=== PATIENT | female | born 1955 | race Hispanic/Latino ===

== ENCOUNTER 2020-03-16 09:14 | Observation (INO) | payer OTHER ==
[~2020-03-16] VITALS: Ht 162.6 cm; Wt 116.3 kg
--- NOTE | 2020-03-16 09:31 | NUR ---
Left arm BP 218/96 Right arm 167/96 Left arm BP 200/91 Right arm 186/103
[2020-03-16] MEDS ORDERED: HYDRALAZINE HCL 20 MG/ML VIAL IV STA (09:41)
[2020-03-16 09:44] LABS: BASOPHILS % 0.6 % (0.0-1.0); EOSINOPHILS % 0.8 % (0.0-6.0); HEMATOCRIT 44.1 % (34.2-44.1); HEMOGLOBIN 13.6 g/dL (12.0-16.0); LYMPHOCYTES # (AUTO) 1.9 (1.0-3.2); LYMPHOCYTES % 35.3 % (18.0-39.1); MEAN CORPUSCULAR HEMOGLOBIN 26.4 pg (28-32); MEAN CORPUSCULAR HGB CONC 30.8 g/dL (31-35); MEAN CORPUSCULAR VOLUME 85.6 fL (81-99); MONOCYTES # (AUTO) 0.4 (0.2-0.8); MONOCYTES % 6.6 % (4.4-11.3); NEUTROPHILS % 56.3 % (38.7-80.0); PLATELET COUNT 241 x10e3/uL (140-360); RED BLOOD COUNT 5.15 x10e6/uL (3.6-5.1); RED CELL DISTRIBUTION WIDTH 14.6 % (11.7-14.4)
[2020-03-16 09:59] LABS: INR 0.89; PROTHROMBIN TIME 12.5 seconds (11.9-14.5)
[2020-03-16 10:00] LABS: PARTIAL THROMBOPLASTIN TIME 28.5 seconds (23.8-35.5)
[2020-03-16 10:08] LABS: ALANINE AMINOTRANSFERASE 14 IU/L (0-55); ALBUMIN 4.2 g/dL (3.5-5.0); ALBUMIN/GLOBULIN RATIO 1.2 (0.8-2.0); ALKALINE PHOSPHATASE 67 IU/L (40-150); BLOOD UREA NITROGEN 9 mg/dL (7-26); BUN/CREATININE RATIO 13 (6-25); CALCIUM 9.5 mg/dL (8.4-10.2); CARBON DIOXIDE 30 mmol/L (22-29); CHLORIDE 102 mmol/L (98-107); CREATINE KINASE 45 IU/L (29-168); EST GLOMERULAR FILTRATION RATE > 60 ML/MIN (60-); GLUCOSE 111 mg/dL (74-118); MAGNESIUM 2.2 MG/DL (1.3-2.1); SODIUM 140 mmol/L (136-145)
[2020-03-16 10:13] LABS: AMYLASE 45 U/L (25-125); LIPASE 25 U/L (8-78)
--- NOTE | 2020-03-16 10:15 | Emergency Department Note ---
History of Present Illnes History of Present Illness Chief Complaint: General Medicine Complaints History of Present Illness This is a 64 year old female Patient in from home with complaints of shortness of breath, epigastric pain, chest pressure, and numbness in her left arm as well as bilateral lower extremities. Patient reports that her blood pressure was high at home today as well as she has been experiencing some vision trouble which she says happens when her blood pressure goes up. Denies pain at this time. Patient is alert and oriented x4. Denies exposure to covid. Historian: Patient Arrival Mode: Car Biztalk Software Developer Required: No Onset (how long ago): hour(s) Location: ABOVE Quality: PAIN Radiation: Reports other (EPIGASTRIC TO CHEST) Severity: moderate Onset quality: sudden Timing of current episode: constant Progression: unchanged Chronicity: new Context: Denies recent illness Relieving factors: none Exacerbating factors: none Associated symptoms: Reports chest pain, Reports shortness of breath Treatments prior to arrival: none Past Medical/Family History Physician Review I have reviewed the patient's past medical and family history. Any updates have been documented here. Past Medical History Recent Fever: No Clinical Suspicion of Infectio: No New/Unexplained Change in Ment: No Past Medical History: Hypertension, Diabetes, Hyperlipedemia Other Medical History: Overactive bladder Past Surgical History: Hysterectomy, Social History Smoking Cessation: Never Smoker Counseling Performed: No Alcohol Use: None Any Illegal Drug Use: No TB Exposure/Symptoms: No Physically hurt or threatened: No Family History Family history of heart diseas: No Other Any Pre-Existing Lines (PICC,: No Review of Systems Review of Systems Constitutional: Reports no symptoms EENTM: Reports no symptoms Cardiovascular: Reports as per HPI Respiratory: Reports as per HPI Gastrointestinal: Reports no symptoms Genitourinary: Reports no symptoms Musculoskeletal: Reports no symptoms Integumentary: Reports no symptoms Neurological: Reports as per HPI Psychological: Reports no symptoms Endocrine: Reports no symptoms Hematological/Lymphatic: Reports no symptoms Physical Exam Related Data Allergies: Coded Allergies: No Known Allergies (Unverified , 03/16/20) Triage Vital Signs Vital Signs Date Time Temp Pulse Resp B/P (MAP) Pulse Ox O2 Delivery O2 Flow Rate FiO2 03/16/20 09:20 99.0 66 18 218/96 100 Room Air Vital signs reviewed: Yes Physical Exam CONSTITUTIONAL Constitutional: Present well-developed, Present well-nourished, Present obese HENT HENT: Present normocephalic, Present atraumatic, Present oropharynx clear/moist, Present nose normal HENT L/R: Present left ext ear normal, Present right ext ear normal EYES Eyes: Reports PERRL, Reports conjunctivae normal NECK Neck: Present ROM normal PULMONARY Pulmonary: Present effort normal, Present breath sounds normal CARDIOVASCULAR Cardiovascular: Present regular rhythm, Present heart sounds normal, Present capillary refill normal, Present normal rate GASTROINTESTINAL Abdominal: Present soft, Present bowel sounds normal, Present tender (MILD TTP HEATH WITHOUT R/G, NABS); Absent guarding, Absent mass, Absent rebound GENITOURINARY Genitourinary: Present exam deferred SKIN Skin: Present warm, Present dry MUSCULOSKELETAL Musculoskeletal: Present ROM normal NEUROLOGICAL Neurological: Present alert, Present oriented x 3, Present no gross motor or s ensory deficits PSYCHOLOGICAL Psychological: Present mood/affect normal, Present judgement normal Results Laboratory Result Diagram: 03/16/20 0934 Laboratory Laboratory Tests Test 03/16/20 09:34 White Blood Count 5.33 x10e3/uL (4.8-10.8) Red Blood Count 5.15 x10e6/uL (3.6-5.1) Hemoglobin 13.6 g/dL (12.0-16.0) Hematocrit 44.1 % (34.2-44.1) Mean Corpuscular Volume 85.6 fL (81-99) Mean Corpuscular Hemoglobin 26.4 pg (28-32) Mean Corpuscular Hemoglobin Concent 30.8 g/dL (31-35) Red Cell Distribution Width 14.6 % (11.7-14.4) Platelet Count 241 x10e3/uL (140-360) Neutrophils (%) (Auto) 56.3 % (38.7-80.0) Lymphocytes (%) (Auto) 35.3 % (18.0-39.1) Monocytes (%) (Auto) 6.6 % (4.4-11.3) Eosinophils (%) (Auto) 0.8 % (0.0-6.0) Basophils (%) (Auto) 0.6 % (0.0-1.0) Neutrophils # (Auto) 3.0 (2.1-6.9) Lymphocytes # (Auto) 1.9 (1.0-3.2) Monocytes # (Auto) 0.4 (0.2-0.8) Eosinophils # (Auto) 0.0 (0.0-0.4) Basophils # (Auto) 0.0 (0.0-0.1) Absolute Immature Granulocyte (auto 0.02 x10e3/uL (0-0.1) Prothrombin Time 12.5 seconds (11.9-14.5) Prothromb Time International Ratio 0.89 Activated Partial Thromboplast Time 28.5 seconds (23.8-35.5) Sodium Level 140 mmol/L (136-145) Potassium Level 4.0 mmol/L (3.5-5.1) Chloride Level 102 mmol/L (98-107) Carbon Dioxide Level 30 mmol/L (22-29) Anion Gap 12.0 mmol/L (8-16) Blood Urea Nitrogen 9 mg/dL (7-26) Creatinine 0.70 mg/dL (0.57-1.11) Estimat Glomerular Filtration Rate > 60 ML/MIN (60-) BUN/Creatinine Ratio 13 (6-25) Glucose Level 111 mg/dL (74-118) Calcium Level 9.5 mg/dL (8.4-10.2) Magnesium Level 2.2 MG/DL (1.3-2.1) Total Bilirubin 1.1 mg/dL (0.2-1.2) Aspartate Amino Transf (AST/SGOT) 18 IU/L (5-34) Alanine Aminotransferase (ALT/SGPT) 14 IU/L (0-55) Alkaline Phosphatase 67 IU/L (40-150) Creatine Kinase 45 IU/L (29-168) Creatine Kinase MB 1.10 ng/mL (0-5.0) Troponin I < 0.001 ng/mL (0-0.300) B-Type Natriuretic Peptide 231.6 pg/mL (0-100) Total Protein 7.8 g/dL (6.5-8.1) Albumin 4.2 g/dL (3.5-5.0) Globulin 3.6 g/dL (2.3-3.5) Albumin/Globulin Ratio 1.2 (0.8-2.0) Amylase Level 45 U/L (25-125) Lipase 25 U/L (8-78) Laboratory Tests Test 03/16/20 09:34 White Blood Count 5.33 x10e3/uL (4.8-10.8) Red Blood Count 5.15 x10e6/uL (3.6-5.1) Hemoglobin 13.6 g/dL (12.0-16.0) Hematocrit 44.1 % (34.2-44.1) Mean Corpuscular Volume 85.6 fL (81-99) Mean Corpuscular Hemoglobin 26.4 pg (28-32) Mean Corpuscular Hemoglobin Concent 30.8 g/dL (31-35) Red Cell Distribution Width 14.6 % (11.7-14.4) Platelet Count 241 x10e3/uL (140-360) Neutrophils (%) (Auto) 56.3 % (38.7-80.0) Lymphocytes (%) (Auto) 35.3 % (18.0-39.1) Monocytes (%) (Auto) 6.6 % (4.4-11.3) Eosinophils (%) (Auto) 0.8 % (0.0-6.0) Basophils (%) (Auto) 0.6 % (0.0-1.0) Neutrophils # (Auto) 3.0 (2.1-6.9) Lymphocytes # (Auto) 1.9 (1.0-3.2) Monocytes # (Auto) 0.4 (0.2-0.8) Eosinophils # (Auto) 0.0 (0.0-0.4) Basophils # (Auto) 0.0 (0.0-0.1) Absolute Immature Granulocyte (auto 0.02 x10e3/uL (0-0.1) Lab results reviewed: Yes Imaging Imaging results reviewed: Yes Procedures 12 Lead ECG Interpretation ECG Interpretation : ECG: ECG 1 Biztalk Software Developer: Interpreted by ED physician Date: Mar 16, 2020 Time: 09:26 Rhythm: sinus bradycardia Ectopy: atrial premature contractions Rate: bradycardia BPM: 54 QRS axis: normal ST segments normal: Yes T waves flattening: aVF, V1 Clinical Impression: abnormal ECG Assessment & Plan Medical Decision Making MDM PT C/O HEATH PAIN RAD TO CHEST AND NUMBNESS TO LEFT ARM & BILAT LEGS, BP HIGHER LEFT ARM THAN RIGHT - CBC, CHEM, ECG, CARDIACS, CT CHEST/ABD - R/O STEMI/NSTEMI, Ao ANEURYSM OR DISSECTION, PANCREATITIS. Reassessment Reassessment admit to PCP Dr Cox Assessment & Plan Final Impression: (1) Chest pain Depart Disposition: ADMITTED Last Vital Signs Date Time Temp Pulse Resp B/P (MAP) Pulse Ox O2 Delivery O2 Flow Rate FiO2 03/16/20 09:31 58 19 186/103 98 Room Air 03/16/20 09:20 99.0 Medications in the ED Hydralazine HCl 10 mg NOW STAT IV ; Start 03/16/20 at 09:41; Stop 03/16/20 at 09:47; Status DC KEISHA ALCAZAR MD Mar 16, 2020 10:15
--- NOTE | 2020-03-16 10:21 | Diagnostic Imaging Report ---
X-ray chest frontal view History: Chest pain Comparison: None Findings: Lines and tubes: Not applicable Central airways: Unremarkable Cardiac silhouette: Unremarkable Mediastinal silhouettes: Unremarkable Pleura: No pleural effusion, pneumothorax or thickening Diaphragms: Unremarkable Lungs: No focal lung disease Skeletal structures: Unremarkable Extrathoracic soft tissues: Unremarkable Impression: No acute cardiopulmonary disease Signed by: Lopez Merino MD on 03/16/2020 10:18 AM
[2020-03-16] MEDS ORDERED: SODIUM CHLORIDE 0.9% 100 ML ONE (10:39)
[2020-03-16] MEDS ORDERED: IOPAMIDOL 370 MG/ML 200 ML INFUS..BTL INJ ONE (10:39)
--- NOTE | 2020-03-16 11:34 | Diagnostic Imaging Report ---
CT BRAIN WO HISTORY: Numbness to left arm and bilateral leg COMPARISON: None. TECHNIQUE: Noncontrast axial scans were obtained from skull base to the vertex. Coronal and sagittal reconstructions obtained from the axial data. One or more of the following dose reduction techniques were used: Automated exposure control, adjustment of the mA and/or kV according to patient size, and/or utilization of iterative reconstruction technique. DISCUSSION: Scalp/Skull: Unremarkable. Brain sulci: Mildly prominent. Ventricles: Mild compensatory dilatation. Extra-axial spaces: No masses or fluid collections. Mild carotid siphon calcifications. Parenchyma: No abnormal densities. No mass, hemorrhage, or large vascular territory acute infarct. Dural sinuses: No abnormal densities. Sellar/Suprasellar region: Intact. Skull base: Intact. Incidental findings: Small osteoma in the left ethmoid air cells. Mild mucosal thickening in the right posterior ethmoid air cells. IMPRESSION: 1. No acute intracranial abnormalities. 2. Mild generalized cerebral volume loss. Signed by: Dr. Ernesto Riojas M.D. on 03/16/2020 11:30 AM
--- NOTE | 2020-03-16 12:16 | Diagnostic Imaging Report ---
EXAM: CTA CHEST ABDOMEN AND PELVIS WITH CONTRAST CLINICAL INDICATION: Pain radiating into the chest TECHNIQUE: CTA chest of the chest abdomen and pelvis was performed without and then following the administration of intravenous contrast, as per department CTA protocol. Axial, sagittal, and coronal reconstructions were obtained. Additionally 3-D images were generated from the raw data using a workstation by the technologist. IV CONTRAST:100 cc of Isovue-370 RADIATION DOSE REDUCTION: This exam was performed according to the departmental dose-optimization program which includes automated exposure control, adjustment of the mA and/or kV according to patient size and/or use of iterative reconstruction technique. COMPARISON: None FINDINGS: VASCULAR COMPONENTS: Vascular structures including the entire aorta, the cervicocerebral branches, the celiac superior mesenteric and inferior mesenteric arteries, single bilateral renal arteries, the common external and internal iliac arteries, the femoral arteries to the extent seen are all normal. Specifically, there is no acute aortic pathology identified on the noncontrast or contrast enhanced images. The venous phase was not performed. But grossly there is no significant abnormality of the veins identified either. NON-VASCULAR COMPONENTS: LOWER NECK: No pathologic process in imaged portion of lower neck. PULMONARY PARENCHYMA AND AIRWAYS: No acute pathologic process. There is presence of a 4 mm nodular density in the right upper lobe seen on axial lung window images #14 series #6. MEDIASTINUM AND OSCAR: No pathologic process. HEART AND PERICARDIUM: Heart normal size. No coronary artery calcification. No pericardial fluid or thickening. PLEURAL SPACES: No pleural fluid, pleural thickening or pneumothorax. CHEST WALL AND AXILLA: No pathologic process. MUSCULOSKELETAL: No pathologic process. LIVER: No pathologic process. GALLBLADDER: Unremarkable BILE DUCTS: No pathologic process. PANCREAS: No pathologic process. SPLEEN: No pathologic process. ADRENALS: No pathologic process. KIDNEYS AND URETERS: No pathologic process. URINARY BLADDER: No pathologic process. GASTROINTESTINAL TRACT: No pathologic process. APPENDIX: No inflammatory changes in region of appendix. LYMPH NODES: No lymphadenopathy. PERITONEUM/MESENTERY: No free air, significant free fluid, mass or fluid collection. ADDITIONAL RETROPERITONEAL FINDINGS: None. REPRODUCTIVE ORGANS:Status post hysterectomy.] Ovary not identified. Dense calcific focus in the left ovary. This can the further evaluated on pelvic ultrasound. ABDOMINAL AND PELVIC SHANKS: No pathologic process. MUSCULOSKELETAL: No pathologic process. ADDITIONAL FINDINGS: None. IMPRESSION: Normal CTA of the chest abdomen and pelvis. Standardized Report: [id number]. Signed by: Lopez Merino MD on 03/16/2020 12:13 PM
--- NOTE | 2020-03-16 12:26 | Diagnostic Imaging Report ---
Please see report under CTA of chest abdomen and pelvis under a different accession number, same date. Signed by: Lopez Merino MD on 03/16/2020 12:22 PM
[2020-03-16] MEDS ORDERED: ONDANSETRON HCL INJ 2MG/ML 2ML 2 MG/ML VIAL IV PRN (12:45)
[2020-03-16] MEDS ORDERED: MORPHINE SULFATE 2 MG/ML SYR 1ML IV PRN (12:45)
[2020-03-16] MEDS: FAMOTIDINE 20 MG/2 ML VIAL IV SCH (13:12)
[2020-03-16 14:27] VITALS: BP 157/80
--- NOTE | 2020-03-16 14:27 | NUR ---
Pt received from ER at this time. Pt is aox4 and able to verbalize needs. Pt is mostly Tajik speaking. Denies any pain at this time. Breathes are even and unlabored on room air.
[2020-03-16] MEDS ORDERED: METFORMIN HCL500 MG PO (15:20)
[2020-03-16] MEDS ORDERED: SIMVASTATIN20 MG PO (15:20)
[2020-03-16] MEDS ORDERED: LOSARTAN-HCTZ1 EAC1 PO (15:20)
[2020-03-16] MEDS ORDERED: OXYBUTYNIN CHLOR5 M1 PO (15:20)
[2020-03-16] MEDS ORDERED: ATENOLOL50 MG PO (15:20)
[2020-03-16] MEDS ORDERED: DEXTROSE 50% SYRINGE 50 ML IV PRN (16:30)
[2020-03-16] MEDS: INSULIN REGULAR, HUMAN 100 UNIT/1 ML 3ML VIAL SQ SCH ×2 (16:30→20:41)
[2020-03-16 19:09] LABS: CREATINE KINASE 36 IU/L (29-168)
[2020-03-16 20:00] VITALS: BP 172/63
[2020-03-16] MEDS ORDERED: SIMVASTATIN 20 MG TAB PO SCH (21:00)
[2020-03-17] VITALS: BP 159/67
--- NOTE | 2020-03-17 | Consultation ---
DATE OF CONSULTATION: 03/16/2020 Cardiology Consultation Note REASON FOR CONSULTATION: Hypertensive emergency, chest pain and shortness of breath. HISTORY OF PRESENT ILLNESS: The patient is a 64-year-old woman with history of hypertension, diabetes mellitus and hyperlipidemia, who comes to the emergency room because of elevated blood pressure at home and symptoms of chest pressure, shortness of breath, left arm numbness, and paresthesia in both feet. The patient states that her usual blood pressure at home is systolic BP of 140 to 150 mmHg with diastolic 80 or less. The patient checked her blood pressure on the day of admission and it was 179/80s mmHg. She had also been experiencing shortness of breath, chest pressure, numbness of her left arm and paresthesia in both feet for the previous 3 days. The patient's symptoms have resolved. She states she has a great deal of stress at home due to three grandchildren ages 13-, 10- and 1-year-old, respectively. The grandchildren are now schooling from home and the 10-year-old child (boy) is hyperactive. The patient has no history of coronary artery disease, RI, heart failure, palpitations, syncope; she gives history of shortness of breath in the past, treated as an outpatient. MEDICAL HISTORY: 1. Hypertension. 2. Diabetes type 2, requiring insulin. 3. Hyperlipidemia. HOME MEDICATIONS: 1. Atenolol, 50 mg tablet, 100 mg p.o. daily. 2. Losartan-hydrochlorothiazide 100/25 mg tablet one a day. 3. Metformin 500 mg tablet one two times a day. 4. Simvastatin 20 mg tablet at night. 5. Insulin SOCIAL HISTORY: Denies tobacco, alcohol or other drug use. is a smoker and used to smoke in the house. REVIEW OF SYSTEMS: As noted above, otherwise 12-organ review of system negative. PHYSICAL EXAMINATION: VITAL SIGNS: The patient's blood pressure was 145/65 with a heart rate of 58, pulse oximetry 100% room air, afebrile. HEAD AND NECK: Normocephalic, atraumatic. Anicteric conjunctiva. No elevation of jugular venous pressure. Trachea midline. LUNGS: Clear to auscultation. CARDIAC: Normal S1 and S2. Positive S4. No S3. No murmurs. ABDOMEN: Soft, nontender and not distended. EXTREMITIES: No leg edema, clubbing, or cyanosis. NEUROLOGIC: The patient was alert and oriented x3, no focal findings. LABORATORY DATA: Showed a white blood cell count of 5.3, hemoglobin is 13.6, hematocrit is 44.1, platelet count is 241,000. Her basic metabolic profile showed sodium 140, potassium 4.0, chloride 102, carbon dioxide 30, BUN 9, creatinine 0.7, glucose 111. Her magnesium was 2.2. Her liver tests were within reference range. Troponin I levels not elevated. Her BNP was mildly elevated at 232. Her electrocardiogram showed normal sinus rhythm and no significant ST abnormalities. Telemetry: sinus bradycardia, no arrhythmias. Chest x-ray: no acute cardiopulmonary disease. CTA of chest, abdomen and pelvis: no abnormalities. CT of the brain without contrast: no acute intracranial abnormalities, mild generalized cerebral volume loss. ASSESSMENT AND PLAN: 1. Hypertensive emergency: Blood pressures recorded in the ER: Left and right arm blood pressures: 218/96 and 167/96 mmHg, respectively; Repeated blood pressures in the ER: left and right arm: 200/91 and 186/103 mmHg, respectively. Her subsequent systolic blood pressures have fluctuated between 145 and 161 mmHg, diastolic blood pressure< 80 mmHg. CTA chest, abdomen, pelvis as above. She is now asymptomatic. Echocardiogram has been ordered. Resume home blood pressure medications, monitor closely, adjust as needed. 2. No evidence of acute coronary syndrome. 3. Hyperlipidemia, continue statin. Thank you for this consultation. MD LEAH Jones/GEMMA /[id number] MTDBryan
[2020-03-17] MEDS: FAMOTIDINE 20 MG/2 ML VIAL IV SCH ×2 (00:45→13:28)
[2020-03-17 01:20] LABS: CREATINE KINASE 35 IU/L (29-168)
[2020-03-17 04:00] VITALS: BP 126/66
[2020-03-17 04:33] VITALS: BP 159/67
[2020-03-17 06:02] LABS: BASOPHILS % 0.5 % (0.0-1.0); EOSINOPHILS # (AUTO) 0.1 (0.0-0.4); EOSINOPHILS % 1.5 % (0.0-6.0); HEMATOCRIT 42.1 % (34.2-44.1); HEMOGLOBIN 12.8 g/dL (12.0-16.0); LYMPHOCYTES # (AUTO) 1.9 (1.0-3.2); LYMPHOCYTES % 33.9 % (18.0-39.1); MEAN CORPUSCULAR HEMOGLOBIN 26.7 pg (28-32); MEAN CORPUSCULAR HGB CONC 30.4 g/dL (31-35); MEAN CORPUSCULAR VOLUME 87.9 fL (81-99); MONOCYTES # (AUTO) 0.5 (0.2-0.8); MONOCYTES % 8.9 % (4.4-11.3); PLATELET COUNT 228 x10e3/uL (140-360); RED BLOOD COUNT 4.79 x10e6/uL (3.6-5.1); RED CELL DISTRIBUTION WIDTH 14.6 % (11.7-14.4)
[2020-03-17 06:19] LABS: ALANINE AMINOTRANSFERASE 12 IU/L (0-55); ALBUMIN 3.6 g/dL (3.5-5.0); ALBUMIN/GLOBULIN RATIO 1.1 (0.8-2.0); ALKALINE PHOSPHATASE 59 IU/L (40-150); ANION GAP 13.6 mmol/L (8-16); BLOOD UREA NITROGEN 9 mg/dL (7-26); BUN/CREATININE RATIO 12 (6-25); CALCIUM 9.3 mg/dL (8.4-10.2); CARBON DIOXIDE 32 mmol/L (22-29); CHLORIDE 101 mmol/L (98-107); CHOL/HDL RATIO 3.8 (3.0-3.6); CHOLESTEROL 138 MD/DL (0-199); CREATININE, SERUM 0.76 mg/dL (0.57-1.11); EST GLOMERULAR FILTRATION RATE > 60 ML/MIN (60-); GLUCOSE 120 mg/dL (74-118); HDL CHOLESTEROL 36 MG/DL (40-60); LDL CHOLESTEROL 63 MG/DL (60-130); POTASSIUM 4.6 mmol/L (3.5-5.1); SODIUM 142 mmol/L (136-145); TRIGLYCERIDES 196 MG/DL (0-149)
[2020-03-17 06:40] LABS: CREATINE KINASE MB 0.9 ng/mL (0-5.0)
[2020-03-17 07:47] VITALS: BP 131/61
[2020-03-17] MEDS: INSULIN REGULAR, HUMAN 100 UNIT/1 ML 3ML VIAL SQ SCH ×2 (08:00→11:30)
[2020-03-17 08:12] VITALS: BP 131/61
[2020-03-17] MEDS ORDERED: ASPIRIN 81 MG ENTERIC COATED PO SCH (09:00)
[2020-03-17] MEDS ORDERED: OXYBUTYNIN CHLORIDE XL 5 MG TAB PO SCH (09:00)
[2020-03-17] MEDS ORDERED: ATENOLOL 50 MG TAB PO SCH (09:00)
[2020-03-17] MEDS ORDERED: HYDROCHLOROTHIAZIDE 25 MG TAB PO SCH (09:00)
[2020-03-17] MEDS ORDERED: LOSARTAN POTASSIUM 100 MG TAB PO SCH (09:00)
[2020-03-17] MEDS ORDERED: NON-FORMULARY MEDICATION (Losartan/Hydrochlorothiazide (Losartan-Hctz 100-25 Mg Tab) 1 TAB PO SCH (09:00)
[2020-03-17] MEDS ORDERED: ACETAMINOPHEN 325 MG TAB ONE (09:04)
[2020-03-17] MEDS ORDERED: ACETAMINOPHEN 325 MG TAB PO ONE (09:30)
--- OUTSIDE RECORDS SUMMARY | 2020-03-17 10:04 | XMS REPORT | Continuity of Care Document ---
Author Author [facility] t Organization [facility] Address [address] [place] [address] Dr. Aguilar [address] [place] [id number] Phone Unavailable Care Team Providers Care Inspector Insulation Name Role Phone Valerio ALCAZAR Attphys Unavailable Problems This patient has no known problems. Allergies, Adverse Reactions, Alerts This patient has no known allergies or adverse reactions. Medications This patient has no known medications. Procedures This patient has no known procedures. Results Test Description Test Time Test Comments Results Result Comments Source CTA CHEST 2020-03-16 12:22:00 [facility] : 1955 Sex: F [facility] [address] [address] Patient Name: GENARO LEOS MR #: [id number] : 1955 Age/Sex: 64/F Req #: [id number] [facility] Physician: Ordered by: KEISHA ALCAZAR MD Report #: [id number] Location: ER Room/Bed: Procedure: [id number] CT/CTA CHEST Exam Date: 03/16/20 Exam Time: 1102 REPORT STATUS: Signed Please see report under CTA of chest abdomen and pelvis under a different accession number, same date. Signed by: Rafael Cuellar MD on 03/16/2020 12:22 PM Dictated By: RAFAEL CUELLAR MD 21 Transcribed By: PRITESH on 03/16/201221 COPY TO: KEISHA ALCAZAR MD CTA ABD/PELVIS 2020-03-16 11:54:00 [facility] : 1955 Sex: F [address] [address] Patient Name: GENARO LEOS MR #: [id number] : 1955 Age/Sex: 64/F Req #: [id number] [facility] Physician: Ordered by: KEISHA ALCAZAR MD Report #: [id number] Location: Room/Bed: Procedure: [id number] CT/CTA ABD/PELVIS Exam Date: 03/16/20 Exam Time: 1102 REPORT STATUS: Signed EXAM: CTA CHEST ABDOMEN AND PELVIS WITH CONTRAST CLINICAL INDICATION: Pain radiating into the chest TECHNIQUE: CTA chest of the chest abdomen and pelvis was performed without and then following the administration of intravenous contrast, as per department CTA protocol. Axial, sagittal, and coronal reconstructions were obtained. Additionally 3-D images were generated from the raw data using a workstation by the technologist. IV CONTRAST:100 cc of Isovue-370 RADIATION DOSE REDUCTION: This exam was performed according to the departmental dose- optimization program which includes automated exposure control, adjustment of the mA and/or kV according to patient size and/or use of iterative reconstruction technique. COMPARISON: None FINDINGS: VASCULAR COMPONENTS: Vascular structures including the entire aorta, the cervicocerebral branches, the celiac superior mesenteric and inferior mesenteric arteries, single bilateral renal arteries, the common external and internal iliac arteries, the femoral arteries to the extent seen are all normal. Specifically, there is no acute aortic pathology identified on the noncontrast or contrast enhanced images. The venous phase was not performed. But grossly there is no significant abnormality of the veins identified either. NON-VASCULAR COMPONENTS: LOWER NECK: No pathologic process in imaged portion of lower neck. PULMONARY PARENCHYMA AND AIRWAYS: No acute pathologic process. There is presence of a 4 mm nodular density in the right upper lobe seen on axial lung window images #14 series #6. MEDIASTINUM AND OSCAR: No pathologic process. HEART AND PERICARDIUM: Heart normal size. No coronary artery calcification. No pericardial fluid or thickening. PLEURAL SPACES: No pleural fluid, pleural thickening or pneumothorax. CHEST WALL AND AXILLA: No pathologic process. MUSCULOSKELETAL: No pathologic process. LIVER: No pathologic process. GALLBLADDER: Unremarkable BILE DUCTS: No pathologic process. PANCREAS: No pathologic process. SPLEEN: No pathologic process. ADRENALS: No pathologic process. KIDNEYS AND URETERS: No pathologic process. URINARY BLADDER: No pathologic process. GASTROINTESTINAL TRACT: No pathologic process. APPENDIX: No inflammatory changes in region of appendix. LYMPH NODES: No lymphadenopathy. PERITONEUM/MESENTERY: No free air, significant free fluid, mass or fluid collection. ADDITIONAL RETROPERITONEAL FINDINGS: None. REPRODUCTIVE ORGANS:Status post hysterectomy.] Ovary not identified. Dense calcific focus in the left ovary. This can the further evaluated on pelvic ultrasound. ABDOMINAL AND PELVIC SHANKS: No pathologic process. MUSCULOSKELETAL: No pathologic process. ADDITIONAL FINDINGS: None. IMPRESSION: Normal CTA of the chest abdomen and pelvis. Standardized Report: [id number]. Signed by: Rafael Cuellar MD on 03/16/2020 12:13 PM Dictated By: RAFAEL CUELLAR MD 12 Transcribed By: PRITESH on 03/16/201212 COPY TO: KEISHA ALCAZAR MD CT BRAIN WO 2020-03-16 11:27:00 [facility] : 1955 Sex: F [address] [place] [address] Patient Name: GENARO LEOS MR #: [id number] : 1955 Age/Sex: 64/F Req #: [id number] Adm Physician: Ordered by: KEISHA ALCAZAR MD Report #: [id number] Location: ER Room/Bed: Procedure: [id number] CT/CT BRAIN WO Exam Date: Exam Time: REPORT STATUS: Signed CT BRAIN WO HISTORY: Numbness to left arm and bilateral leg COMPARISON: None. TECHNIQUE: Noncontrast axial scans were obtained from skull base to the vertex. Coronal and sagittal reconstructions obtained from the axial data. One or more of the following dose reduction techniques were used: Automated exposure control, adjustment of the mA and/or kV according to patient size, and/or utilization of iterative reconstruction technique. DISCUSSION: Scalp/Skull: Unremarkable. Brain sulci: Mildly prominent. Ventricles: Mild compensatory dilatation. Extra-axial spaces: No masses or fluid collections. Mild carotid siphon calcifications. Parenchyma: No abnormal densities. No mass, hemorrhage, or large vascular territory acute infarct. Dural sinuses: No abnormal densities. Sellar/Suprasellar region: Intact. Skull base: Intact. Incidental findings: Small osteoma in the left ethmoid air cells. Mild mucosal thickening in the right posterior ethmoid air cells. IMPRESSION: 1. No acute intracranial abnormalities. 2. Mild generalized cerebral volume loss. Signed by: Dr. Ernesto Riojas M.D. on 03/16/2020 11:30 AM Dictated By: ERNESTO RIOJAS MD 29 Transcribed By: PRITESH on 03/16/201129 COPY TO: KEISHA ALCAZAR MD CHEST SINGLE (PORTABLE) 2020-03-16 10:17:00 [facility] GEN[facility] HERNANDEZ : 1955 Sex: F [facility] [address] [place], [place] [id number] Patient Name: GENARO LEOS MR #: [id number] : 1955 Age/Sex: 64/F Req #: [id number] [facility] Physician: Ordered by: KEISHA ALCAZAR MD Report #: [id number] Location: ER Room/Bed: Procedure: [id number] DX/CHEST SINGLE (PORTABLE) Exam Date: 03/16/20 Exam Time: 929 REPORT STATUS: Signed X-ray chest frontal view History: Chest pain Comparison: None Findings: Lines and tubes: Not applicable Central airways: Unremarkable Cardiac silhouette: Unremarkable Mediastinal silhouettes: Unremarkable Pleura: No pleural effusion, pneumothorax or thickening Diaphragms: Unremarkable Lungs: No focal lung disease Skeletal structures: Unremarkable Extrathoracic soft tissues: Unremarkable Impression: No acute cardiopulmonary disease Signed by: Rafael Cuellar MD on 03/16/2020 10:18 AM Dictated By: RAFAEL CUELLAR MD 1018 Transcribed By: PRITESH on 03/16/20 1018 COPY TO: KEISHA ALCAZAR MD
--- OUTSIDE RECORDS SUMMARY | 2020-03-17 10:04 | XMS REPORT | Continuity of Care Document ---
Author Author [facility] t Organization [facility] Address [address] [place] [address] Dr. 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 Allergies, Adverse Reactions, Alerts This patient has no known allergies or adverse reactions. Medications This patient has no known medications. Procedures This patient has no known procedures. Results Test Description Test Time Test Comments Results Result Comments Source CTA CHEST 2020-03-16 12:22:[address] [facility] : 1955 Sex: F [facility] [address] [address] Patient Name: GENARO LEOS MR #: [id number] : 1955 Age/Sex: 64/F Req #: [id number] [facility] Physician: Ordered by: KEISHA ALCAZAR MD Report #: [id number] Location: ER Room/Bed: Procedure: [id number] CT/CTA CHEST Exam Date: 03/16/20 Exam Time: 1102 REPORT STATUS: Signed Please see report under CTA of chest abdomen and pelvis under a different accession number, same date. Signed by: Rafael Cuellar MD on 03/16/2020 12:22 PM Dictated By: RAFAEL CUELLAR MD 21 Transcribed By: PRITESH on 03/16/201221 COPY TO: KEISHA ALCAZAR MD CTA ABD/PELVIS 2020-03-16 11:54:[address] [facility] : 1955 Sex: F [address] [place] [address] Patient Name: GENARO LEOS MR #: [id number] : 1955 Age/Sex: 64/F Req #: [id number] [facility] Physician: Ordered by: KEISHA ALCAZAR MD Report #: [id number] Location: Room/Bed: Procedure: [id number] CT/CTA ABD/PELVIS Exam Date: 03/16/20 Exam Time: [...] pelvis. Standardized Report: [id number]. Signed by: Rafael uCellar MD on 03/16/2020 12:13 PM Dictated By: RAFAEL CUELLAR MD 12 Transcribed By: PRITESH on 03/16/201212 COPY TO: KEISHA ALCAZAR MD CT BRAIN WO 2020-03-16 11:27:00 [facility] 1955 Sex: [place] [address] Patient Name: GENARO LEOS MR #: [id number] : 1955 Age/Sex: 64/F Req #: [id number] Adm Physician: Ordered by: KEISHA ALCAZAR MD Report #: [id number] Location: ER Room/Bed: Procedure: [id number] CT/CT BRAIN WO Exam Date: Exam Time: [...] MD CHEST SINGLE (PORTABLE) 2020-03-16 10:17:00 [facility] GENAR[facility] HERNANDEZ : 1955 Sex: F [facility] [address] [place], [place] [id number] Patient Name: GENARO LEOS MR #: [id number] : 1955 Age/Sex: 64/F Req #: [id number] [facility] Physician: Ordered by: KEISHA ALCAZAR MD Report #: [id number] Location: ER Room/Bed: Procedure: [id number] DX/CHEST SINGLE (PORTABLE) Exam Date: 03/16/20 Exam [...]
--- NOTE | 2020-03-17 11:01 | History and Physical ---
ADMIT DIAGNOSES: 1. Angina. 2. Hypertensive urgency. 3. Extreme obesity, BMI 44. 4. Type 2 diabetes mellitus. DISCHARGE DIAGNOSES: 1. Chest pain, resolved. 2. Hypertensive urgency, resolved. 3. Hypertensive heart disease. 4. Extreme obesity, BMI 44. 5. Type 2 diabetes mellitus. HOSPITAL COURSE/HISTORY OF PRESENT ILLNESS: This is a 64-year-old woman, who presented to [facility] Emergency Room with 1-day history of shortness of breath, epigastric pain and left-sided discomfort. The patient states she was experiencing numbness in her left arm as well as her bilateral lower extremities. The patient states she noted her blood pressure was elevated at home and became very concerned. In the emergency room, the patient's blood pressure did get as high as 218/96, but it did normalize with intravenous hydralazine. During her brief hospitalization, the patient underwent serial cardiac enzymes namely troponin I and all four sets were negative for myocardial ischemia. The patient also underwent electrocardiograms, which did not reveal any evidence of acute myocardial ischemia or infarction. The patient was found to have an LDL cholesterol of 63 mg/dL, but she is on simvastatin 20 mg every night. The patient's chest film on admission was unremarkable. The patient underwent a CT angiogram of the chest as well as abdomen and pelvis. The results of this imaging study did not reveal any pathologic process according to radiologist. The patient was chest pain free on discharge. The patient's B- type natriuretic peptide level was slightly elevated at 231. The patient did undergo an echocardiogram during this hospitalization and the preliminary reading revealed a preserved left ventricular ejection fraction of 65% to 70%, but it did reveal concentric left ventricular hypertrophy. Prior to discharge exercise treadmill stress test was performed and the results were normal. REVIEW OF SYSTEMS: GENERAL: Weight has been stable. No fever or chills. HEENT: The patient does have a headache at this time, but it started after she was administered intravenous morphine at 3 o'clock this morning. Denies any visual changes. CARDIOVASCULAR/RESPIRATORY: Chest pain as per HPI, but has since resolved. Shortness of breath has also resolved. GI: No nausea with chest discomfort. No diarrhea. No constipation. : No urinary tract infection type symptoms. NEUROMUSCULAR: She did experience left arm numbness as well as numbness in both legs when she initially presented, but this has since resolved. PAST SURGICAL HISTORY: 1. Hysterectomy. 2. section once. FAMILY HISTORY: Her mother has coronary artery disease, but is still alive and is 98 years old. This patient states she does have family history of hypertension and type 2 diabetes mellitus. SOCIAL HISTORY: She is and lives with her . She recently retired. The patient has no history of tobacco or alcohol use. PAST MEDICAL HISTORY: 1. Hypertensive heart disease. 2. Type 2 diabetes mellitus. 3. Hyperlipidemia. 4. Extreme obesity, BMI 44. 5. Overactive bladder. ALLERGIES: NO KNOWN DRUG ALLERGIES. HOME MEDICATIONS: 1. Atenolol 100 mg daily. 2. Losartan/hydrochlorothiazide 100/25 mg daily. 3. Metformin 500 mg b.i.d. 4. Oxybutynin 10 mg daily. 5. Simvastatin 20 mg at bedtime. PHYSICAL EXAMINATION: GENERAL: She is awake, she is alert, she is fully oriented. She speaks only Uzbek. She does not appear to be in any obvious distress. VITAL SIGNS: Height 5 feet 4 inches, weight 256 pounds, BMI 44. Blood pressure at this time is 130/60 with a pulse of 52, respiratory rate is 18, temperature 98.4, oxygen saturation 97% on room air. In the emergency room, the patient's blood pressure did get as high as 218/96, but her pulse never went above 66 beats per minute. INTEGUMENT: Skin is warm and dry. No pallor, jaundice or diaphoresis. HEENT: Anicteric sclerae with moist mucous membranes. NECK: Supple. No evidence of jugular venous distention. CARDIOVASCULAR: Distant heart sounds. Bradycardic rate, regular rhythm. LUNGS: No rales. No rhonchi. No wheezes, but the patient has moderate air entry bilaterally. ABDOMEN: Obese, benign. EXTREMITIES: No edema or deformity. NEUROLOGIC: Intact. ADDITIONAL DIAGNOSES ON DISCHARGE: 1. Atypical chest pain, resolved (normal exercise stress test). 2. Acute diastolic heart failure, likely. 3. Hypertensive urgency, resolved. 4. Hypertensive heart disease. 5. Extreme obesity, BMI 44. 6. Type 2 diabetes mellitus. PLAN: 1. I will discuss case with Cardiology namely Dr. Maged Foley. 2. The patient will likely undergo a stress test within the next 2-3 days. 3. We will resume home medications. 4. I did inform the patient that she may have mild diastolic congestive heart failure. 5. May consider switching atenolol to metoprolol succinate, but will defer this to Cardiology. 6. We will hold metformin until further notice since the patient could potentially undergo left heart catheterization within the next week. 7. If the patient discharged, she will resume all her home medications except metformin until further notice. 8. Instruct the patient to return to the nearest emergency room if she has recurrence of chest pain. I spent an hour in the care of this patient. MD BETITO Foster/GEMMA /[id number] MTDD
[2020-03-17 12:01] VITALS: BP 137/62
--- NOTE | 2020-03-17 13:31 | NUR ---
DAY 1 OBS DX: CHEST PAIN SENT TO R1 FOR LOC DETERMINATION
--- NOTE | 2020-03-17 14:15 | NUR ---
Spoke with Dr. Foley and has cleared patient to discharge from his standpoint. He would like for her to resume home hypertension medications once discharge and follow up with Dr. Cox.
[2020-03-17] MEDS ORDERED: ASPIRIN81 MG PO (14:19)
--- NOTE | 2020-03-17 16:26 | NUR ---
Pt discharged home at this time. 0 s/s of acute distress noted at time of discharge. Pt and family verbalized understanding of all discharge instructions and follow up appointments. Pt went home with one prescription for aspirin and verbalized understanding of aspirin administration. Per cardiology recommendation pt is to resume all home blood pressure medications, including atenolol.
--- NOTE | 2020-03-17 16:27 | NUR ---
Pt discharged home at this time. Pt is aox4, 0 s/s of acute distress noted at time of discharge. Dressing to right groin is dry and intact. No hematoma or bleeding noted. Pt verbalized understanding of all discharge and follow up appointments. Pt verbalized understanding of new medications.
--- NOTE | 2020-03-17 21:53 | Progress Note ---
DATE: 03/17/2020 Cardiology Progress Note SUBJECTIVE: Chest pain resolved. Blood pressure improved. No other complaints. OBJECTIVE: VITAL SIGNS: Temperature is 98.4, heart rate 52, blood pressure 131/61, respiratory rate 17, O2 saturation 97%, BMI 43.9. GENERAL: No acute distress, alert. NECK: No JVD. CHEST: Clear to auscultation. CARDIOVASCULAR: Regular rate and rhythm. Normal S1 and S2. No S3. No S4. No murmurs. No rubs. ABDOMEN: Soft. Bowel sounds positive. EXTREMITIES: No edema. CARDIOVASCULAR MEDICATIONS: Reviewed. 1. Aspirin 81 mg daily. 2. Simvastatin 20 mg at bedtime. 3. Atenolol 100 mg daily. 4. Losartan 100 mg daily. 5. Hydrochlorothiazide 25 mg daily. STUDIES: Reviewed. Potassium 4.6, bicarbonate 32, creatinine 0.7, glucose 120. White blood cells 5.5, hemoglobin 12.8, platelets 228, AST 18, ALT 12. Echocardiogram with preserved ventricular systolic function. Treadmill stress with normal hemodynamic and electrocardiographic response to stress, achieved more than 7 METs. ASSESSMENT AND PLAN: 1. A 64-year-old woman presents with hypertensive urgency, morbid obesity, chest pain, dyspnea. 2. Hypertension and dyslipidemia. RECOMMEND: Continue current antihypertensive therapy. Outpatient followup advised in 3 to 4 weeks post discharge. MD AlvaradoV/GEMMA /[id number]
--- NOTE | 2020-03-18 18:06 | Operative Report ---
DATE OF PROCEDURE: 03/17/2020 SURGEON: Maged Garza MD PROCEDURE INDICATION: Chest pain. INTERPRETING AND SUPERVISING PHYSICIAN: Maged Garza MD, Interventional Cardiology. INTERPRETATION: At rest, heart rate 74, blood pressure 151/80. Resting EKG, normal sinus rhythm, nonspecific repolarization abnormality. After total of 6 minutes and 26 seconds of Jamel protocol treadmill exercise, the patient achieved a peak heart rate 132 beats per minute, representing 93% of max predicted heart rate for age and sex. Blood pressure increased to 198/81. Total seven METS were achieved. There were no significant ST changes or arrhythmias. Test ended due to fatigue. There was fast recovery heart rate down to 86 after 1 minute. CONCLUSION: Normal hemodynamic and electrocardiographic response to treadmill test. Maged Garza MD AFV/MODL /[id number]
== END 2020-03-17 15:01 | disposition home or self-care (01) ==
LOC: ER 09:25 → ERHOLD 12:44 → MED/SURG2 14:35
PROVIDERS: ADMIT Internal Medicine; ATTEND Internal Medicine
DX: R07.89 Other chest pain (principal); R10.13 Epigastric pain; I16.0 Hypertensive urgency; E66.01 Morbid (severe) obesity due to excess calories; Z68.41 Body mass index [BMI] 40.0-44.9, adult; I11.9 Hypertensive heart disease without heart failure; E11.9 Type 2 diabetes mellitus without complications; E78.5 Hyperlipidemia, unspecified; N32.81 Overactive bladder; E66.9 Obesity, unspecified; Z82.49 Family history of ischemic heart disease and other diseases of the circulatory system; Z83.3 Family history of diabetes mellitus; Z79.84 Long term (current) use of oral hypoglycemic drugs
CPT/HCPCS: 36415; 70450; 71045; 71275; 74174; 80053; 80061; 82150; 82550; 82553; 82948; 83690; 83735; 83880; 84484; 85025; 85610; 85730; 93005; 93017; 93306; 99284; G0378; J0360; J2270; J2405; J7050; Q9967; U0002

== ENCOUNTER 2021-01-29 13:40 | Emergency (ER) | payer OTHER ==
[~2021-01-29] VITALS: Ht 165.1 cm; Wt 117.9 kg
[~2021-01-29 13:40] MED LIST: ASPIRIN81 MG PO; ATENOLOL50 MG PO; LOSARTAN-HCTZ1 EAC1 PO; METFORMIN HCL500 MG PO; OXYBUTYNIN CHLOR5 M1 PO; SIMVASTATIN20 MG PO
== END 2021-01-29 14:38 | disposition home or self-care (01) ==
LOC: ER 13:50
DX: U07.1 COVID-19 (principal); R53.1 Weakness; I10 Essential (primary) hypertension; E11.9 Type 2 diabetes mellitus without complications; E78.5 Hyperlipidemia, unspecified
CPT/HCPCS: 99282

== ENCOUNTER → 2021-09-05 | Day surgery (SDC) | payer OTHER ==
[2021-09-03 11:56] LABS: BASOPHILS % 0.5 % (0.0-1.0); EOSINOPHILS # (AUTO) 0.1 (0.0-0.4); EOSINOPHILS % 0.8 % (0.0-6.0); HEMATOCRIT 40.2 % (34.2-44.1); HEMOGLOBIN 12.2 g/dL (12.0-16.0); LYMPHOCYTES # (AUTO) 1.8 (1.0-3.2); MEAN CORPUSCULAR HEMOGLOBIN 26.3 pg (28-32); MEAN CORPUSCULAR HGB CONC 30.3 g/dL (31-35); MEAN CORPUSCULAR VOLUME 86.6 fL (81-99); MONOCYTES # (AUTO) 0.5 (0.2-0.8); MONOCYTES % 7.6 % (4.4-11.3); NEUTROPHILS # (AUTO) 3.6 (2.1-6.9); NEUTROPHILS % 60.9 % (38.7-80.0); PLATELET COUNT 253 x10e3/uL (140-360); RED BLOOD COUNT 4.64 x10e6/uL (3.6-5.1); RED CELL DISTRIBUTION WIDTH 14.3 % (11.7-14.4)
[2021-09-03 12:26] LABS: ANION GAP 9.7 mmol/L (8-16); CALCIUM 9.4 mg/dL (8.4-10.2); CREATININE, SERUM 0.72 mg/dL (0.57-1.11); POTASSIUM 4.7 mmol/L (3.5-5.1)
[~2021-09-05] MED LIST changes: +AMLODIPINE BESYL5 MG PO; +ATROPINE SULFATE 1 MG/ML VIAL ONE; +BALANCED SALT SOLN (OPTH) 15 ML BTL IO ONE; +BUPIVACAINE HC 0.75% PF 10ML VIAL INJ ONE; +CYCLOPENTOLATE HCL 1% OPTH SOLN 2ML BTL ONE; +EPINEPHRINE HCL 1:1000 1ML 1 MG/ML AMP ONE; +FISH OIL 1,0001 EAC2 PO; +GARLIC1000 MG PO; +GATIFLOXACIN(OPTH) 5 ML LIQD ONE; +HYDRALAZINE HCL25 MG PO; +LIDOCAINE 2% /EPINEPHRINE 20 ML SDV INJ ONE; +LIDOCAINE HCL-PF 4% 40 MG/1 ML 5ML AMP ONE; +LOSARTAN POTAS100 MG PO; +MIDAZOLAM HCL 2 MG/2 ML VIAL ONE; +PHENYLEPHRINE HCL 2 ML DROPS ONE; +PILOCARPINE HCL(OPTH) 15 ML LIQD ONE; +POVIDONE IODINE 0.05% 0.05 % ML PO ONE; +POVIDONE IODINE 5% (OPTH) 30 ML BTL ONE; +PROPOFOL IV EMULSION 10 MG/ML 20 ML VIAL ONE; +TOBRAMYCIN/DEXAMETHASONE(OPTH) 3.5 GM TUBE ONE; +VIT B12 PO
[2021-09-05 09:35] VITALS: BP 111/69
== END | disposition home or self-care (01) ==
LOC: OR 06:55
PROVIDERS: ATTEND Ophthalmology
DX: H25.12 Age-related nuclear cataract, left eye (principal); E11.9 Type 2 diabetes mellitus without complications; I10 Essential (primary) hypertension; R00.1 Bradycardia, unspecified; Z01.810 Encounter for preprocedural cardiovascular examination; Z01.812 Encounter for preprocedural laboratory examination; Z20.822 Contact with and (suspected) exposure to COVID-19; Z79.82 Long term (current) use of aspirin; Z79.84 Long term (current) use of oral hypoglycemic drugs; Z79.899 Other long term (current) drug therapy
CPT/HCPCS: 36415; 80048; 82948; 85025; 93005; J0171; J0461; J2001; J2250; U0002; V2632

== ENCOUNTER → 2021-11-28 | Day surgery (SDC) | payer OTHER ==
[2021-11-26 11:23] LABS: BASOPHILS % 0.5 % (0.0-1.0); EOSINOPHILS # (AUTO) 0.1 (0.0-0.4); EOSINOPHILS % 1.6 % (0.0-6.0); HEMATOCRIT 41.3 % (34.2-44.1); HEMOGLOBIN 12.6 g/dL (12.0-16.0); LYMPHOCYTES % 31.8 % (18.0-39.1); MEAN CORPUSCULAR HGB CONC 30.5 g/dL (31-35); MEAN CORPUSCULAR VOLUME 85.3 fL (81-99); MONOCYTES # (AUTO) 0.5 (0.2-0.8); MONOCYTES % 7.1 % (4.4-11.3); NEUTROPHILS # (AUTO) 3.7 (2.1-6.9); NEUTROPHILS % 58.7 % (38.7-80.0); PLATELET COUNT 255 x10e3/uL (140-360); RED BLOOD COUNT 4.84 x10e6/uL (3.6-5.1); RED CELL DISTRIBUTION WIDTH 15.6 % (11.7-14.4)
[2021-11-26 11:48] LABS: ANION GAP 13.1 mmol/L (8-16); CALCIUM 9.4 mg/dL (8.4-10.2); CREATININE, SERUM 0.93 mg/dL (0.57-1.11); POTASSIUM 4.1 mmol/L (3.5-5.1)
[~2021-11-28] MED LIST changes: -ATROPINE SULFATE 1 MG/ML VIAL ONE; -CYCLOPENTOLATE HCL 1% OPTH SOLN 2ML BTL ONE; +CYCLOPENTOLATE HCL 2% OPTH SOLN 2 ML BTL OP ONE; -MIDAZOLAM HCL 2 MG/2 ML VIAL ONE
[2021-11-28 08:20] VITALS: BP 127/66
== END | disposition home or self-care (01) ==
LOC: OR 05:52
PROVIDERS: ATTEND Ophthalmology
DX: H25.11 Age-related nuclear cataract, right eye (principal); E11.9 Type 2 diabetes mellitus without complications; I10 Essential (primary) hypertension; R00.1 Bradycardia, unspecified; E78.5 Hyperlipidemia, unspecified; E66.01 Morbid (severe) obesity due to excess calories; Z79.82 Long term (current) use of aspirin; Z79.84 Long term (current) use of oral hypoglycemic drugs; Z79.899 Other long term (current) drug therapy
CPT/HCPCS: 0223U; 36415; 80048; 82948; 85025; 93005; J0171; J2001; V2632

== ENCOUNTER → 2024-04-04 | Day surgery (SDC) | payer OTHER ==
[~2024-04-04] MED LIST changes: +ACETAMINOPHEN 1000 MG/100 ML 100 ML IV ONE; +ACETAMINOPHEN 1000 MG/100 ML IV PRN; +ASPIRIN 325 MG TAB PO SCH; -BALANCED SALT SOLN (OPTH) 15 ML BTL IO ONE; -BUPIVACAINE HC 0.75% PF 10ML VIAL INJ ONE; +BUPIVACAINE/EPI 0.5% 30ML SDV-MPF INJ ONE; +CELECOXIB 200 MG CAP PO SCH; -CYCLOPENTOLATE HCL 2% OPTH SOLN 2 ML BTL OP ONE; +DEXAMETHASONE SOD PHOS INJ 4 MG/ML SDV ONE; +DIPHENHYDRAMINE HCL INJ 50 MG/ML VIAL IV PRN; +DOCUSATE SODIUM 100 MG CAP PO PRN; +EPHEDRINE SULFATE INJ 50 MG/ML VIAL ONE; -EPINEPHRINE HCL 1:1000 1ML 1 MG/ML AMP ONE; +FAMOTIDINE 20 MG/2 ML VIAL IV ONE; +FENTANYL CITRATE/PF 100MCG/2 ML INJ ONE; -GATIFLOXACIN(OPTH) 5 ML LIQD ONE; +HYDROCODONE/APAP 5MG-325MG TAB PO PRN; +HYDROCODONE/APAP 7.5MG-325MG 1 EA TAB PO PRN; +LEXAPRO10 MG PO; -LIDOCAINE 2% /EPINEPHRINE 20 ML SDV INJ ONE; +LIDOCAINE HCL 2% LOCAL INJ 5 ML SDV VIAL INJ ONE; -LIDOCAINE HCL-PF 4% 40 MG/1 ML 5ML AMP ONE; +MIDAZOLAM HCL 2 MG/2 ML VIAL ONE; +ONDANSETRON HCL INJ 2MG/ML 2ML 2 MG/ML VIAL IV PRN; +ONDANSETRON HCL INJ 2MG/ML 2ML 2 MG/ML VIAL ONE; +OZEMPIC0.25 MG/02 SC; -PHENYLEPHRINE HCL 2 ML DROPS ONE; -PILOCARPINE HCL(OPTH) 15 ML LIQD ONE; -POVIDONE IODINE 0.05% 0.05 % ML PO ONE; -POVIDONE IODINE 5% (OPTH) 30 ML BTL ONE; +ROPIVACAINE/EPI/CLONIDINE/KET 50 ML SYRINGE INJ ONE; +SEVOFLURANE INHAL SOLN 250 ML PEN BTL ONE; +SODIUM CHLORIDE 0.9% 1000ML 1,000 ML IV SCH; -TOBRAMYCIN/DEXAMETHASONE(OPTH) 3.5 GM TUBE ONE
[2024-04-04] MEDS: CELECOXIB 200 MG CAP ONE (07:17)
[2024-04-04] MEDS: LACTATED RINGER'S 1,000 ML ONE (07:17)
[2024-04-04] MEDS: DEXAMETHASONE SOD PHOS 10 MG/1 ML VIAL ONE (07:17)
[2024-04-04] MEDS: GABAPENTIN 300 MG CAP ONE (07:17)
[2024-04-04] MEDS: CEFAZOLIN SODIUM 2 GM ONE (07:18)
[2024-04-04 11:09] VITALS: TEMP 98.5
[2024-04-04] MEDS: ONDANSETRON HCL INJ 2MG/ML 2ML 2 MG/ML VIAL IV ONE (13:10)
[2024-04-04 13:40] VITALS: BP 148/80; PULSE 59; RESP 16; O2SAT 96
== END | disposition home health service (06) ==
LOC: OR 06:55
PROVIDERS: ATTEND Specialist
DX: M17.12 Unilateral primary osteoarthritis, left knee (principal); M06.9 Rheumatoid arthritis, unspecified; E11.9 Type 2 diabetes mellitus without complications; I10 Essential (primary) hypertension; E78.5 Hyperlipidemia, unspecified; F32.A Depression, unspecified; Z01.812 Encounter for preprocedural laboratory examination; Z79.82 Long term (current) use of aspirin; Z79.84 Long term (current) use of oral hypoglycemic drugs; Z79.85 Long-term (current) use of injectable non-insulin antidiabetic drugs; Z79.899 Other long term (current) drug therapy; Z68.41 Body mass index [BMI] 40.0-44.9, adult
CPT/HCPCS: 86850; 86900; C1713; C1776; J0690; J1100; J2003; J2250; J2405